=== PATIENT | female | born 1995 | race African-American/Black ===

== ENCOUNTER 2017-10-23 14:09 | Emergency (ER) | payer MEDICAID ==
[~2017-10-23] VITALS: Ht 162.6 cm; Wt 86.2 kg
[2017-10-23 14:26] VITALS: BP 137/96
[2017-10-23] MEDS ORDERED: CEPHALEXIN500 MG ORAL (14:31)
--- NOTE | 2017-10-23 14:36 | Emergency Room Report ---
History of Present Illness General Chief Complaint: Skin Rash/Abscess Source: Patient Present Illness HPI 22-year-old female patient presents to ER complaining of skin infection on her right inner thigh. Patient reports she noticed infection yesterday. Patient reports she placed a hot compress on it yesterday and woke up this morning to see that had grown in size. Patient reports that is painful. Patient denies pus or blood draining from the site infection. Patient denies fever, chest pain , shortness of breath, nausea, vomiting, diarrhea. denies pruritus. Allergies: Coded Allergies: No Known Allergies (Unverified , 10/23/17) Patient History Past Medical History: see triage record Last Menstrual Period: 09/28/17 Now: No Reviewed Nursing Documentation: PMH: Agreed; PSxH: Agreed Nursing Documentation-PMH Past Medical History: No Stated History Review of Systems All Other Systems: negative except mentioned in HPI Physical Exam Vital Signs Date Time Temp Pulse Resp B/P (MAP) Pulse Ox O2 Delivery O2 Flow Rate FiO2 10/23/17 14:16 98.6 76 16 137/96 97 Room Air 98.6 Sp02 EP Interpretation: reviewed, normal General Appearance: well appearing, no apparent distress, alert, GCS 15, non- toxic Head: normocephalic, atraumatic Eyes: bilateral eye normal inspection, bilateral eye PERRL Neck: full range of motion Respiratory: lungs clear, normal breath sounds, no rhonchi, no respiratory distress, no accessory muscle use, no wheezing, speaking full sentences Cardiovascular #1: regular rate, rhythm, no edema Musculoskeletal: back normal, digits/nails normal, gait/station normal, normal range of motion, non-tender Neurologic: alert, oriented x3, responsive, motor strength/tone normal, sensory intact Psychiatric: mood/affect normal Skin: other - right inner thigh: 1-2cm area of erythema, TTP, no active drainage, no blood present, no ulcer, no blisters or vesicles Medical Decision Making PA Attestation Dr. Hardy is my supervising Physician whom patient management has been discussed with. Diagnostic Impression: Primary Impression: Rash and other nonspecific skin eruption ER Course Pt. presents to the ED c/o skin infection. Ddx considered but are not limited to rash, cellulitis, abscess, sebaceous cyst , carbuncle, folliculitis. Does not require imaging at this time. Vital signs: are WNL, pt. is afebrile ED INTERVENTIONS: Skin infection on right inner thigh consistent with cellulitis/early abscess formation, no palpable nodule or cyst, no hair noted coming from area of infection. Does not require I and D at this time. Will treat with outpatient antibiotics. Follow-up with primary care provider for further diagnosis and treatment. Return to ER or reports primary care provider in 3-5 days for wound check. Return to ER immediately for new or worsening symptoms. Advised patient to continue with warm compresses. Advised patient on sitz baths. Take Tylenol for pain. DISCHARGE: -Rx provided for Keflex At this time pt. is stable for d/c to home. Patient is resting comfortably, in no acute distress, nontoxic appearing. Will provide printed patient care instructions and any necessary prescriptions. Care plan and follow up instructions have been discussed with the patient prior to discharge. Patient instructed to follow-up with primary care provider in 2 - 3 days for wound recheck. Patient questions asked and answered. Patient reports understanding and agreement to treatment plan. ER precautions given. Patient instructed to return to ER immediately for any new or worsening of symptoms including but not limited to fever, worsening of pain symptoms, worsening of erythema, red streaking. - Please note that this Emergency Department Report was dictated using [employer] worker technology software, occasionally this can lead to erroneous entry secondary to interpretation by the dictation equipment. Last Vital Signs Date Time Temp Pulse Resp B/P (MAP) Pulse Ox O2 Delivery O2 Flow Rate FiO2 10/23/17 14:16 98.6 76 16 137/96 97 Room Air 98.6 Disposition: HOME, SELF-CARE Condition: Stable Scripts Cephalexin* (KEFLEX*) 500 Mg Capsule 500 MG ORAL EVERY 12 HOURS, #14 CAP 0 Refills Prov: Josesito Resendiz 10/23/17 Patient Instructions: Abscess Additional Instructions: Followup with primary care provider in 3 -5 days or return to ER for wound check and evaluation if unable to see PCP. Perform SITZ baths and warm compresses at home. Take medications as directed. Patient questions asked and answered. ER precautions given. Patient instructed to return to ER immediately for any new or worsening of symptoms including but not limited to fever, worsening of pain symptoms, worsening of erythema, red streaking. Josesito Resendiz Oct 23, 2017 14:36
[2017-10-23 14:45] VITALS: BP 134/95
== END 2017-10-23 14:45 | disposition home or self-care (01) ==
LOC: EDBD 14:09 → EMR 14:35
DX: R21 Rash and other nonspecific skin eruption (principal)
CPT/HCPCS: 99283